=== PATIENT | female | born 1970 | race American Indian/Alaskan Native ===

== ENCOUNTER 2021-02-08 20:18 | Emergency (ER) | payer MEDICAID, OTHER ==
[2021-02-08 21:30] VITALS: BP 110/78
--- NOTE | 2021-02-08 21:37 | Event Note ---
ED Screening Note Date of service: 02/08/21 Time: 21:27 ED Screening Note: 50-year-old female patient with history of hypertension presents to emergency department via EMS status post syncopal episode. Patient does not recall losing consciousness; the ambulance was called by her , who witnessed the episode. Patient does remember experiencing left arm numbness for approximately 10 minutes before syncopized in. She states this occurred approximately 6:00 PM. Patient also endorses nausea and vomiting. She also experienced transient dizziness, which is since resolved. She does not take anticoagulation. No known history of AL/stroke. General: Awake, appropriately interactive, no acute distress. Neck: Supple. Full range of motion intact. Cardiovascular: Normal peripheral perfusion. Pulmonary: No respiratory distress. Patient is speaking normally without use of accessory muscles. Skin: No apparent rashes or lesions. Neurological: No facial asymmetry. Speech is clear. Follows commands. Patient is alert and oriented. Strength and sensation intact throughout. GCS 15. Cranial n erves II-XII grossly intact. Musculoskeletal: Moves all four extremities spontaneously with normal range of motion. Psych: Cooperative. Appropriate mood and affect. Patient is not a candidate for TPA due to delayed onset of presentation and rapid symptom resolution. Neurological exam is nonfocal and vital signs are stable in triage. CT head ordered in triage, however there is no indication to i nitiate stroke alert protocol at this time. I have greeted and performed a focused rapid initial assessment of this patient. A comprehensive ED assessment and evaluation of the patient, analysis of all test results, and completion of the medical decision-making process will be conducted by additional ED providers. This initial assessment/diagnostic orders/clinical plan/treatment(s) is/are subject to change based on patients health status, clinical progression and re-assessment. Further treatment and workup at subsequent clinical provider's discretion. Patient/guardian urged not to elope from the ED as their condition may be serious if not clinically assessed and managed.
[2021-02-08 21:53] LABS: Basophils % (Auto) 0.9 % (0.0-1.8); Eosinophils # (Auto) 0.1 K/mm3 (0.0-0.4); Eosinophils % (Auto) 1.1 % (0.0-4.3); Hematocrit 39.4 % (30.3-42.9); Hemoglobin 12.9 gm/dl (10.1-14.3); Lymphocytes # (Auto) 1.6 K/mm3 (1.2-5.4); Lymphocytes % (Auto) 31.7 % (13.4-35.0); Mean Corpuscular HGB Conc 33 % (30-34); Mean Corpuscular Volume 81 fl (79-97); Monocytes # (Auto) 0.7 K/mm3 (0.0-0.8); Monocytes % (Auto) 14.2 % (0.0-7.3); Platelet Count 285 K/mm3 (140-440)
[2021-02-08 22:09] LABS: Alanine Aminotransferase 29 units/L (7-56); Albumin 4.4 g/dL (3.9-5); Blood Urea Nitrogen 14 mg/dL (7-17); Calcium 8.7 mg/dL (8.4-10.2); Hemolysis Index 14
[2021-02-08 22:12] LABS: BUN/Creatinine Ratio 20
--- NOTE | 2021-02-08 22:27 | Cat Scan Report ---
NONENHANCED CT SCAN OF THE HEAD: INDICATION / CLINICAL INFORMATION: 50 years Female; Patient complains of LEFT arm numbness (resolved). TECHNIQUE: Routine CT head without contrast. All CT scans at this location are performed using CT dos e reduction for ALARA by means of automated exposure control. COMPARISON: None. FINDINGS: BRAIN / INTRACRANIAL CONTENTS: No acute hemorrhage, mass effect, midline shift, hydrocephalus, or acu te, large territorial infarct. No chronic infarct or focal atrophy. Normal brain volume and ventricul ar/sulcal size for age. No significant white matter abnormality. CRANIOCERVICAL JUNCTION: No significant abnormality. ORBITS: No significant abnormality of visualized orbits. SINUSES / MASTOIDS: No significant abnormality of the visualized paranasal sinuses or mastoid air jemal ls. ADDITIONAL FINDINGS: None. IMPRESSION: No acute focal parenchymal lesion Signer Name: Kath Marrufo MD Signed: 02/08/2021 10:23 PM Workstation Name: [id number]
--- NOTE | 2021-02-08 22:42 | XRay Report ---
CHEST 2 VIEWS INDICATION / CLINICAL INFORMATION: syncope. COMPARISON: None available. FINDINGS: SUPPORT DEVICES: None. HEART / MEDIASTINUM: No significant abnormality. LUNGS / PLEURA: No significant pulmonary or pleural abnormality. No pneumothorax. ADDITIONAL FINDINGS: No significant additional findings. IMPRESSION: 1. No acute findings. Signer Name: Shakir Barnes MD Signed: 02/08/2021 10:38 PM Workstation Name: [id number]
--- NOTE | 2021-02-09 11:32 | Electrocardiograph Report ---
[facility] Test Date: 2021-02-08 Test Time: 21:37:03 Pat Name: MICHAELLE BELTRE Department: Room: Gender: F [employer]: RUBINA Ring : 1970 Requested By: IVY KAHN Order Number: [id number] Reading MD: Chapincito Chaudhari Measurements Intervals [place] Rate: 70 P: 61 MD: 126 QRS: 55 QRSD: 80 T: 56 QT: 409 QTc: 441 Interpretive Statements Sinus rhythm non specific st-t No previous ECG available for comparison Electronically Signed On 02-09-2021 11:31:51 EDT by Chapincito Chaudhari
== END 2021-02-09 02:57 | disposition left against medical advice (07) ==
LOC: ED 20:18
DX: R55 Syncope and collapse (principal); Z53.21 Procedure and treatment not carried out due to patient leaving prior to being seen by health care provider
CPT/HCPCS: 36415; 70450; 71046; 80053; 83735; 84100; 84484; 84703; 85025; 93005

== ENCOUNTER 2021-02-09 10:01 | Emergency (ER) | payer OTHER ==
[2021-02-09 10:19] VITALS: BP 114/85
--- NOTE | 2021-02-09 11:02 | Emergency Department Report ---
ED General Adult HPI - General Chief complaint: Dyspnea/Respdistress Stated complaint: SOB/LT ARM NUMB Time Seen by Provider: 02/09/21 10:58 Source: patient Mode of arrival: Ambulatory Limitations: No Limitations - History of Present Illness Initial comments: 50-year-old female patient with history of hypertension presents to emergency department with complaints of chest pain, shortness of breath, and cough starting a few weeks ago. No known sick contacts. No recent travel. No steroid or antibiotic use. Denies fever, chills, palpitations, lower extremity pain/swelling, wheezing, hemoptysis. Denies all other complaints at this time. - Related Data Previous Rx's Medication Instructions Recorded Last Taken Type Benzonatate [Tessalon Perles] 200 mg PO Q8HR #30 capsule 02/09/21 Unknown Rx Allergies Allergy/AdvReac Type Severity Reaction Status Date / Time No Known Allergies Allergy Unverified 02/08/21 21:21 ED Review of Systems ROS: Stated complaint: SOB/LT ARM NUMB Other details as noted in HPI Other: GENERAL: Negative for fever, chills, weight change, anorexia, fatigue. ENT: Negative for ear pain, difficulty hearing, sore throat, nasal congestion, epistaxis. CARDIOVASCULAR: Positive for chest pain. PULMONARY: Positive for cough and shortness of breath GASTROINTESTINAL: Negative for abdominal pain, nausea, vomiting, diarrhea, constipation. MUSCULOSKELETAL: Negative for joint pain, joint swelling, myalgias, back pain, neck pain. NEUROLOGICAL: Negative for headache, seizure, syncope, paresthesias, weakness. INTEGUMENTARY: Negative for erythema, rash, diaphoresis, laceration, ecchymosis. HEMATOLOGICAL: Negative for hemoptysis, hematemesis, hematochezia, hematuria. PSYCHIATRIC: Negative for hallucinations, suicidal ideation, homicidal ideation, anxiety, depression. ED Past Medical Hx - Past Medical History Hx Hypertension: Yes - Medications Home Medications: Home Medications Medication Instructions Recorded Confirmed Last Taken Type Benzonatate [Tessalon Perles] 200 mg PO Q8HR #30 capsule 02/09/21 Unknown Rx ED Physical Exam - General Limitations: No Limitations - Other Other exam information: General: Awake and alert. No acute distress. Head: Atraumatic, normocephalic. Eyes: EOMI. Pupils are equal and round. Normal sclera and conjunctiva. ENT: Oral mucosa is moist. Normal pharyngeal exam. Neck: Supple. No lymphadenopathy. Pulmonary: No respiratory distress. Clear to auscultation bilaterally. Cardiac: Regular rate and rhythm. Pulses are palpable and equal bilaterally. No lower extremity cyanosis or edema. Skin: Warm and dry. No rashes. Abdomen: Soft, non-tender, non-protuberant. No guarding, rigidity, or rebound. Bowel sounds are normal. No organomegaly or masses noted. Back: Normal alignment. No CVA tenderness. Extremities: Symmetrical. Full range of motion intact. Neurological: Alert and oriented, appropriately interactive, no focal deficits. Psych: Cooperative. Appropriate mood and affect. Speech is evenly metered. Thoughts are logically construed. ED Course Vital Signs 02/09/21 10:04 Temperature 98.1 F Pulse Rate 69 Respiratory 18 Rate Blood Pressure 114/85 O2 Sat by Pulse 96 Oximetry ED Medical Decision Making - Lab Data Result diagrams: 02/09/21 11:21 02/09/21 11:21 - EKG Data 02/09/21 14:34 EKG shows normal sinus rhythm with a ventricular rate of 65 bpm. Normal axis. Normal WA interval. Normal QT interval. Left atrial enlargement. Good R wave progression. No ST segment changes. Over read by attending emergency physician, who agrees with this interpretation. - Medical Decision Making Differential diagnosis including but not limited to: acute coronary syndrome, cardiac arrhythmia, pericarditis, pericardial bleeding/cardiac tamponade, pneumonia, pleural effusion, pneumothorax, congestive heart failure, asthma, COPD, viral upper respiratory infection Patient presents emergency department complaints of chest pain, shortness of breath, and cough for the last few weeks. Of note, patient was evaluated in the emergency department yesterday for similar symptoms as well as syncope/left arm numbness; patient eloped from the emergency department before results of diagnostic testing became available. She is here today specifically for evaluation of chest pain, shortness of breath, and cough. She is no longer complaining of neurological symptoms, although she has been encouraged to follow-up with her primary care provider for further evaluation. On evaluation, patient remains stable. Labs within normal limits. Chest x-ray without acute process. History and exam findings suggestive of viral upper respiratory infection. Patient be treated symptomatically and discharged home in stable condition. Patient expressed understanding is agreeable to plan of care. Disease transmission precautions discussed. Strict return precautions provided. Repeat exam is unremarkable and benign. History, exam, diagnostic testing, and current condition do not suggest worrisome pathology to warrant further testing, continued ED treatment, admission, or surgical evaluation at this point. Given t he low probability of a significant medical illness, it would be more likely to result in harm than benefit to perform further testing at this stage. Discussed findings, presumptive diagnosis, need for follow-up and specific signs/symptoms that should prompt immediate return to the emergency department. Instructions were explained in detail to the patient in addition to giving written discharge information. Patient expressed understanding and was given the opportunity to ask questions, all of which were satisfactorily answered prior to discharge home. Critical care attestation.: If time is entered above; I have spent that time in minutes in the direct care of this critically ill patient, excluding procedure time. ED Disposition Clinical Impression: Viral upper respiratory tract infection with cough Disposition: TO HOME OR SELFCARE Is pt being admited?: No Does the pt Need Aspirin: No Condition: Stable Instructions: Upper Respiratory Infection, Adult Additional Instructions: Take Tylenol or 4 hours as needed for pain Take Tessalon Perles as directed for cough Honey is an excellent natural cough suppressant. Rest. Drink plenty fluids. Wash hands frequently to prevent disease transmission. Do not share food or drinks with others. Follow-up with your primary care provider next week. Call today to schedule an appointment. Return to the emergency department immediately for new or worsening symptoms. Prescriptions: Benzonatate [Tessalon Perles] 200 mg PO Q8HR #30 capsule Referrals: PRIMARY CARE, [Primary Care Provider] - 3-5 Days Forms: Work/School Release Form(ED) Time of Disposition: 14:42 HEART Score - HEART Score History: Slightly suspicious EKG: Normal Age: 45-65 Risk factors: 1-2 risk factors Troponin: Troponin T < 0.010 ng/mL (0.00-0.029) 02/09/21 11:21 Troponin: < normal limit HEART Score: 2 - Critical Actions Critical Actions: 0-3 pts:0.9-1.7%risk of adverse cardiac event.Candidate for discharge
--- NOTE | 2021-02-09 11:38 | XRay Report ---
CHEST 2 VIEWS INDICATION: chest pain/SOB. COMPARISON: Yesterday FINDINGS: SUPPORT DEVICES: None. HEART: Within normal limits. LUNGS/PLEURA: No acute air space or interstitial disease. No pneumothorax. ADDITIONAL FINDINGS: None. IMPRESSION: 1. No acute findings. Signer Name: Azam Means MD Signed: 02/09/2021 11:33 AM Workstation Name: [id number]
[2021-02-09 12:20] LABS: Hematocrit 40.5 % (30.3-42.9); Hemoglobin 13.3 gm/dl (10.1-14.3); Mean Corpuscular HGB Conc 33 % (30-34); Mean Corpuscular Volume 81 fl (79-97); Platelet Count 284 K/mm3 (140-440); Red Cell Distribution Width 14.9 % (13.2-15.2)
[2021-02-09 12:40] LABS: Alanine Aminotransferase 27 units/L (7-56); Albumin 3.9 g/dL (3.9-5); Blood Urea Nitrogen 12 mg/dL (7-17); Calcium 9.2 mg/dL (8.4-10.2); Hemolysis Index 22
[2021-02-09 12:42] LABS: BUN/Creatinine Ratio 17
[2021-02-09 13:27] LABS: Total Cells Counted 100
[2021-02-09 13:28] LABS: Large Platelets Rare; Platelet Estimate Consistent w Auto; RBC Morphology Normal
== END 2021-02-09 16:00 | disposition home or self-care (01) ==
LOC: ED 10:01
DX: J06.9 Acute upper respiratory infection, unspecified (principal); B97.89 Other viral agents as the cause of diseases classified elsewhere; R05 Cough; I10 Essential (primary) hypertension; Z79.899 Other long term (current) drug therapy
CPT/HCPCS: 36415; 71046; 80053; 83735; 84484; 85007; 85025; 93005